=== PATIENT | female | born 1930 | race African-American/Black ===

== ENCOUNTER 2017-12-16 05:35 | Day surgery (SDC) | payer MEDICARE, BC ==
[2017-12-15 11:44] VITALS: BMI 18.8
[2017-12-16 06:46] LABS: Hemoglobin 12.5 g/dL (12.0-16.0); Mean Corpuscular HGB CONC 31.3 g/dL (32.0-36.0); Mean Corpuscular Hemoglobin 31.9 pg (27.0-31.0); Mean Platelet Volume 10.4 fL (7.4-10.4); Platelet Count 150 thou/uL (130-400); RBC Distribution Width 13.7 % (11.5-14.5); Red Blood Cell (RBC) Count 3.92 mill/uL (4.20-5.40); White Blood Cell (WBC) Count 9.1 thou/uL (4.8-10.8)
[2017-12-16 07:07] LABS: Anion Gap 17 mmol/L (10-20); BUN (Urea Nitrogen) 25 mg/dL (9.8-20.1); Calc. Creatinine Clearance 8 mL/min (70-130); Calcium 9.5 mg/dL (7.8-10.44); Carbon Dioxide 23 mmol/L (23-31); Chloride 99 mmol/L (98-107); Estimated GFR-MDRD 13; Glucose 109 mg/dL (83-110); Potassium 4.1 mmol/L (3.5-5.1); Sodium 135 mmol/L (136-145)
[2017-12-16 07:19] LABS: Acanthocytes SLIGHT = 1-5 cells (100X) (None Seen); Burr Cells SLIGHT = 2-5 cells (100X) (0-1/hpf); Eosinophils 1 % (0-10); Lymphocytes 13 % (21-51); MDiff Complete? YES; Metamyelocyte 1 % (0-0); Monocytes 8 % (0-10); Neutrophil 77 % (42-75); PLT Morphology Comment Appears Adequate
[2017-12-16] MEDS ORDERED: Fentanyl 100 MCG/2 ML VIAL ONE (07:34)
[2017-12-16] MEDS ORDERED: Heparin 10,000 UNITS/1 ML VIAL ONE (07:41)
[2017-12-16] MEDS ORDERED: Protamine Sulfate 50 MG/5 ML VIAL ONE (08:07)
[2017-12-16] MEDS ORDERED: Clopidogrel Bisulfate 75 MG TAB ONE (08:14)
--- NOTE | 2017-12-16 08:59 | OP ---
DATE OF PROCEDURE: 12/16/2017 PREOPERATIVE DIAGNOSIS: Peripheral artery disease with stenosis of the distal femoral peroneal graft . PROCEDURE: Aortogram, right leg runoff with a 2.5 x 12 Synergy stent at the proximal margin of the p revious stent. FINDINGS: 80-90% stenosis at the proximal stent margin and reduced to 0% post-stenting. SURGEON: Tremanye Parra M.D. FINDINGS: Local with 1% lidocaine and IV fentanyl. CONTRAST: 28. FLUORO: 9.7 PROCEDURE IN DETAIL: After prepping and draping, lidocaine was used to infiltrate the left groin, ul trasound was used to assist with puncture and the patient was noted to have a fairly heavily calcifie d femoral artery. Wire, 5 [facility] dilator and stent were placed. Retrograde angiography was then obt ained demonstrating no significant stenosis in the distal aorta or either iliac system. Both iliacs were heavily calcified. Using the Contra catheter, the wire was passed into the right common femoral artery and the Contra catheter placed into the right external iliac artery where runoff was obtained . Following this, the Bentson wire was advanced into the fem-peroneal graft at which point 5000 of h eparin was given and the Contra catheter and 5-[facility] Lucian sheaths were replaced with a 5-[facility] Lucian destinati on sheath. Following this, a Luge wire was advanced across the stenosis and a 2 x 12 balloon was use d to free inflate following which the 2.5 x 12 Synergy stent was placed. Completion angiography was obtained and sheath was removed after protamine administration.
[2017-12-16] MEDS ORDERED: Iopamidol 370 76% 50 ML VIAL FS ONE (10:38)
== END 2017-12-16 14:00 | disposition home or self-care (01) ==
LOC: CCL 05:35
PROVIDERS: ATTEND Thoracic Surgery (Cardiothoracic Vascular Surgery)
PROC: 047K34Z Dilation of Right Femoral Artery with Drug-eluting Intraluminal Device, Percutaneous Approach (ICD-10-PCS; principal; 2017-12-16)
DX: I70.223 Atherosclerosis of native arteries of extremities with rest pain, bilateral legs (principal); I25.10 Atherosclerotic heart disease of native coronary artery without angina pectoris; I12.0 Hypertensive chronic kidney disease with stage 5 chronic kidney disease or end stage renal disease; E11.22 Type 2 diabetes mellitus with diabetic chronic kidney disease; N18.6 End stage renal disease; Z79.02 Long term (current) use of antithrombotics/antiplatelets; Z79.4 Long term (current) use of insulin; Z79.82 Long term (current) use of aspirin; Z79.899 Other long term (current) drug therapy; Z95.820 Peripheral vascular angioplasty status with implants and grafts
CPT/HCPCS: 37230; 76942; 80048; 85025; 85347; C1725; C1769 ×2; C1874; J1644; J2720; J3010